=== PATIENT | male | born 1950 | race Caucasian/White ===

== ENCOUNTER → 2021-01-13 04:57 | Outpatient (CLI) | payer MEDICARE, SELFPAY ==
[2021-01-13 19:22] LABS: SARS-CoV-2 RNA PCR Negative
== END ==
PROVIDERS: Internal Medicine Gastroenterology; PCP Family Medicine; Visit Provider Internal Medicine Gastroenterology
DX: Z01.812 Encounter for preprocedural laboratory examination (principal); Z20.822 Contact with and (suspected) exposure to COVID-19
CPT/HCPCS: C9803; U0003; U0005

== ENCOUNTER 2021-01-16 00:29 | Day surgery (SDC) | payer MEDICARE, SELFPAY ==
[2020-11-11 14:31] VITALS: BMI 22.8
[2021-01-03 13:25] VITALS: BMI 22.8
--- NOTE | 2021-01-03 15:00 | PC.NURSE ---
Pt states no change in past medical history since prior interview. Pt updated and given instructions for colonoscopy.
[2021-01-16 07:55] VITALS: BP 117/67; PULSE 81; RESP 18; TEMP 36.2; O2SAT 98; BMI 22.6
[2021-01-16] MEDS: LACTATED RINGERS 1,000 ML 150 ML IV CONT (08:13)
--- NOTE | 2021-01-16 08:19 | WPDANESEPPF ---
Anes - Initial Pre Proc Eval Procedure: Operation Date: 01/16/21 09:00 Proposed Procedures p Screening Colonoscopy - Bradley Ruano MD Date/Time: 01/16/21 08:19 Surgeon: Bradley Ruano MD Pre Op Diagnosis: Hx of Colon Polyps Patient Data Age: 70 Gender: M Height: 5 ft 7 in Weight: 65.5 kg Last Vital Signs Temp 97.2 F L 01/16/21 07:55 Pulse 81 01/16/21 07:55 Resp 18 01/16/21 07:55 BP 117/67 01/16/21 07:55 Pulse Ox 98 01/16/21 07:55 Allergies Allergy/AdvReac Type Severity Reaction Status Date / Time No Known Allergies Allergy Verified 01/16/21 07:54 Home Medications Medication Instructions Recorded Confirmed Type atorvastatin 40 mg tablet 40 mg PO DAILY #90 tablet 09/15/20 01/16/21 Rx fluticasone propionate 50 1 spray NASAL BID #48 ml 09/15/20 01/16/21 Rx mcg/actuation nasal spray,suspension triamcinolone acetonide 0.05 % 1 applic TOPICAL BID #60 gm 09/15/20 01/16/21 Rx topical ointment sodium,potassium,mag sulfates 17.5 See Rx Instructions PO .COMPLEX 11/11/20 01/16/21 Rx gram-3.13 gram-1.6 gram oral soln #354 ml Patient hx anesthesia problems: none Family hx anesthesia problems: none PMFSH Past Medical History Medical History (Updated 01/16/21 @ 08:23 by Bradley Ruano MD) Cellulitis Encounter for hepatitis C screening test for low risk patient Sebaceous cyst Viral conjunctivitis of right eye Surgical History Surgical History (Updated 09/14/19 @ 11:04 by Juanis Mejia MA) H/O hernia repair History of cholecystectomy Family History Family History (Updated 04/28/19 @ 11:35 by DOCTOR UNKNOWN) Mother Patient's mother is , Onset Age: 92 Father Patient's father is , Onset Age: 80 Social History Social History (Updated 09/15/20 @ 08:57 by Juanis Mejia MA) Smoking status: Former smoker Tobacco type: cigarettes Additional smoking assessment comments: smoked in his teenage years Alcohol intake: current Drinks per week: 4 Substance use: never Living arrangements: with family Gender identity (if verbalized by the patient): Male Spiritual care concerns: No Anes - Eval Final PreProcedure Day of Procedure 01/16/21 08:19 Patient weight: normal Heart: regular rate and rhythm Lungs: clear to auscultation Airway: Mallampati scale class II Neurological: alert and oriented Last oral intake: >/= 8 hours ASA classification: II Emergent: no Anesthetic plan: proceed Anesthesia type and monitoring: general GIVS and standard monitoring Informed Consent: The patient's anesthetic plan and its attendant risks and benefits were discussed with the patient/family/POA. Questions were solicited and answers provided to the satisfaction of the patient/family/POA.
--- NOTE | 2021-01-16 08:22 | PM.HPGS ---
History of Present Illness History of Present Illness Consent: Risks, benefits, and alternatives have been discussed and questions answered. Patient agrees to proceed with procedure. Chief complaint: Hx of Colon Polyps Narrative: Joao Collins is a 70 year old male here for colon cancer screening. He had polyps removed about 10 years ago Review of Systems Review of Systems: All systems reviewed & are unremarkable except as noted in HPI and below PMFSH Past Medical History Medical History Cellulitis Encounter for hepatitis C screening test for low risk patient Sebaceous cyst Viral conjunctivitis of right eye Surgical History Surgical History H/O hernia repair History of cholecystectomy Family History Family History Mother Patient's mother is , Onset Age: 92 Father Patient's father is , Onset Age: 80 Social History Social History Smoking status: Former smoker Tobacco type: cigarettes Additional smoking assessment comments: smoked in his teenage years Alcohol intake: current Drinks per week: 4 Substance use: never Living arrangements: with family Gender identity (if verbalized by the patient): Male Spiritual care concerns: No Meds Home Medications and Allergies Home Medications Medication Instructions Recorded Confirmed Type atorvastatin 40 mg tablet 40 mg PO DAILY #90 tablet 09/15/20 01/16/21 Rx fluticasone propionate 50 1 spray NASAL BID #48 ml 09/15/20 01/16/21 Rx mcg/actuation nasal spray,suspension triamcinolone acetonide 0.05 % 1 applic TOPICAL BID #60 gm 09/15/20 01/16/21 Rx topical ointment sodium,potassium,mag sulfates 17.5 See Rx Instructions PO .COMPLEX 11/11/20 01/16/21 Rx gram-3.13 gram-1.6 gram oral soln #354 ml Allergies Allergy/AdvReac Type Severity Reaction Status Date / Time No Known Allergies Allergy Verified 01/16/21 07:54 Vital Signs Vital Signs - 24 hr 01/16/21 07:55 Temperature 36.2 C L Pulse Rate 81 Respiratory Rate 18 Blood Pressure 117/67 Pulse Oximetry 98 Exam Resp: Auscultation: clear to auscultation bilaterally Cardio: Rate: regular rate Rhythm: regular rhythm GI: GI Palp: Yes Soft to palpation and No Tenderness to palpation present (GI) Assessment and Plan Assessment and plan (1) Colon cancer screening: Code(s): Z12.11 - Encounter for screening for malignant neoplasm of colon Status: Acute Assessment and Plan: Colonoscopy with possible biopsy or polypectomy or cautery or injection of substances.
[2021-01-16] MEDS: SIMETHICONE ORAL SUSPENSION 20 MG/0.3 ML 30 ML BOTTLE 0.6 ML IRRIGATION (08:55)
[2021-01-16 09:04] VITALS: BP 89/46; PULSE 65; RESP 20; O2SAT 98
[2021-01-16 09:14] VITALS: BP 97/56; PULSE 65; RESP 20; O2SAT 98
[2021-01-16 09:24] VITALS: BP 111/50; PULSE 65; RESP 20; O2SAT 99
== END 2021-01-16 10:01 | disposition home or self-care (01) ==
PROVIDERS: PCP Family Medicine; Visit Provider Internal Medicine Gastroenterology
PROC: 0DJD8ZZ Inspection of Lower Intestinal Tract, Via Natural or Artificial Opening Endoscopic (ICD-10-PCS; CPT 45378; principal; 2021-01-16 09:00)
DX: Z12.11 Encounter for screening for malignant neoplasm of colon (principal); Z86.010 Personal history of colon polyps; Z87.891 Personal history of nicotine dependence; K57.30 Diverticulosis of large intestine without perforation or abscess without bleeding
CPT/HCPCS: G0105; J2704; J7120